=== PATIENT | female | born 1930 | race Caucasian/White ===

== ENCOUNTER 2017-10-31 09:15 | Day surgery (SDC) | payer MEDICARE, BC ==
[2017-10-31] MEDS ORDERED: ACETAZOLAMIDE 250 MG PO ONE (09:37)
[2017-10-31] MEDS: PHENYLEPHRINE HCL 10% OPHTHAL SOL ONE ×2 (09:49→10:07)
[2017-10-31] MEDS: PROPARACAINE HCL 0.5% OPHTHALMIC SOL ONE ×3 (09:49→10:54)
[2017-10-31] MEDS: KETOROLAC 0.5% OPTH 60 DROP SOL ONE ×2 (09:50→10:08)
[2017-10-31] MEDS: CYCLOPENTOLATE 1% SOL ONE ×2 (09:50→10:08)
[2017-10-31 09:55] VITALS: RESP 16; O2SAT 97
[2017-10-31] MEDS ORDERED: MIDAZOLAM 2 MG/2 ML SOL ONE (10:14)
[2017-10-31] MEDS ORDERED: FENTANYL 100MCG/2ML SOL ONE (10:14)
[2017-10-31] MEDS ORDERED: POVIDONE IODINE 5% SOL ONE (10:50)
[2017-10-31] MEDS ORDERED: LIDOCAINE HCL 1% MPF SOL ONE (10:50)
[2017-10-31] MEDS ORDERED: BSS 500 ML 500 ML IR ONE (10:50)
[2017-10-31] MEDS ORDERED: CEFUROXIME SODIUM/0.9% NACL/PF 10 MG/ML VIAL IO ONE ×2 (11:02→11:10)
[2017-10-31] MEDS: TRIAMCINOLONE ACETONIDE 10 MG/ML VIAL ONE ×2 (11:02→11:10)
[2017-10-31 11:25] VITALS: BP 142/71; PULSE 70; TEMP 97.5
== END 2017-10-31 11:53 | disposition home or self-care (01) | DRG 125 ==
LOC: SURG 09:15
PROVIDERS: ATTEND Ophthalmology
DX: H25.9 Unspecified age-related cataract (principal)
CPT/HCPCS: J2250; J3010; A9270-GY; J0697; J2001; J3300

== ENCOUNTER 2017-11-28 08:25 | Day surgery (SDC) | payer MEDICARE, BC ==
[~2017-11-28 08:25] MED LIST: ACETAZOLAMIDE 250 MG PO ONE
[2017-11-28 08:47] VITALS: BP 134/74; PULSE 83; RESP 16; TEMP 97.9; O2SAT 96
[2017-11-28] MEDS: PROPARACAINE HCL 0.5% OPHTHALMIC SOL ONE ×3 (08:55→10:01)
[2017-11-28] MEDS: CYCLOPENTOLATE 1% SOL ONE ×2 (08:56→09:09)
[2017-11-28] MEDS: PHENYLEPHRINE HCL 10% OPHTHAL SOL ONE ×2 (08:56→09:08)
[2017-11-28] MEDS: KETOROLAC 0.5% OPTH 60 DROP SOL ONE ×2 (08:57→09:09)
[2017-11-28] MEDS ORDERED: MIDAZOLAM 2 MG/2 ML SOL ONE (09:37)
[2017-11-28] MEDS ORDERED: FENTANYL 100MCG/2ML SOL ONE (09:37)
[2017-11-28] MEDS ORDERED: LIDOCAINE HCL 1% MPF SOL ONE (09:53)
[2017-11-28] MEDS ORDERED: BSS 500 ML 500 ML IR ONE (09:53)
[2017-11-28] MEDS ORDERED: POVIDONE IODINE 5% SOL ONE (09:53)
== END 2017-11-28 10:50 | disposition home or self-care (01) | DRG 125 ==
LOC: SURG 08:25
PROVIDERS: ATTEND Ophthalmology
DX: H26.9 Unspecified cataract (principal)
CPT/HCPCS: J2250; J3010; A9270-GY; J2001